=== PATIENT | male | born 1975 | race Two or more races ===

== ENCOUNTER 2022-04-18 10:44 | Emergency (ER) | payer OTHER, SELFPAY ==
--- NOTE | ~2022-04-18 | XR_ITS ---
EXAMINATION: XR NECK SOFT TISSUE XR CHEST XR ABDOMEN CLINICAL INFORMATION: Question foreign body COMPARISON: None TECHNIQUE: 2 views of the neck soft tissues. PA view of the chest. One view, 2 images of the abdomen. FINDINGS: NECK: The airways patent. No radiopaque foreign body identified. The soft tissues appear unremarkable. The epiglottis is normal. The prevertebral soft tissues are normal. Normal appearance of the cervical spine. CHEST: The lungs are well expanded. There is no focal consolidation, edema, or effusion. No pneumothorax. The cardiomediastinal silhouette is within normal limits. No acute osseous abnormality. No radiopaque foreign body. ABDOMEN: Normal bowel gas pattern. No radiopaque foreign body identified. Gas and stool throughout the colon. No suspicious calcifications. No acute osseous abnormality. XR/XR soft tissue neck IMPRESSION: 1. No radiopaque foreign body identified. 2. Clear lungs. 3. Nonobstructive bowel gas pattern. Stool throughout the colon.
--- NOTE | ~2022-04-18 | XR_ITS ---
EXAMINATION: XR NECK SOFT TISSUE XR CHEST XR ABDOMEN CLINICAL INFORMATION: Question foreign body COMPARISON: None TECHNIQUE: 2 views of the neck soft tissues. PA view of the chest. One view, 2 images of the abdomen. FINDINGS: NECK: The airways patent. No radiopaque foreign body identified. The soft tissues appear unremarkable. The epiglottis is normal. The prevertebral soft tissues are normal. Normal appearance of the cervical spine. CHEST: The lungs are well expanded. There is no focal consolidation, edema, or effusion. No pneumothorax. The cardiomediastinal silhouette is within normal limits. No acute osseous abnormality. No radiopaque foreign body. ABDOMEN: Normal bowel gas pattern. No radiopaque foreign body identified. Gas and stool throughout the colon. No suspicious calcifications. No acute osseous abnormality. XR/XR chest 1V IMPRESSION: 1. No radiopaque foreign body identified. 2. Clear lungs. 3. Nonobstructive bowel gas pattern. Stool throughout the colon.
--- NOTE | ~2022-04-18 | XR_ITS ---
EXAMINATION: XR NECK SOFT TISSUE XR CHEST XR ABDOMEN CLINICAL INFORMATION: Question foreign body COMPARISON: None TECHNIQUE: 2 views of the neck soft tissues. PA view of the chest. One view, 2 images of the abdomen. FINDINGS: NECK: The airways patent. No radiopaque foreign body identified. The soft tissues appear unremarkable. The epiglottis is normal. The prevertebral soft tissues are normal. Normal appearance of the cervical spine. CHEST: The lungs are well expanded. There is no focal consolidation, edema, or effusion. No pneumothorax. The cardiomediastinal silhouette is within normal limits. No acute osseous abnormality. No radiopaque foreign body. ABDOMEN: Normal bowel gas pattern. No radiopaque foreign body identified. Gas and stool throughout the colon. No suspicious calcifications. No acute osseous abnormality. XR/XR abdomen 1V IMPRESSION: 1. No radiopaque foreign body identified. 2. Clear lungs. 3. Nonobstructive bowel gas pattern. Stool throughout the colon.
[2022-04-18 10:50] VITALS: BP 126/73; PULSE 72; RESP 18; TEMP 36.7; O2SAT 99; BMI 24.4
[2022-04-18 11:19] VITALS: BP 132/87; PULSE 78; RESP 18; TEMP 36.6; O2SAT 98
--- NOTE | 2022-04-18 11:20 | PC.NURSE ---
46 y/o M pw ?foreign body. pt states that he accidentally swallowed the rubber stopper from his water bottle and wants to be sure it is not stuck. pt was able to eat and drink without difficulty this AM. no other complaints. denies SOB/or difficulty breathing. speaking in clear sentences. [id number], calm and cooperative, VSS
--- NOTE | 2022-04-18 12:01 | ED_ITS ---
HPI - General Adult General Chief complaint: Skin/Abscess/Foreign Body Stated complaint: Swallowed FO from water bottle Time Seen by Provider: 04/18/22 11:51 Source: patient Mode of arrival: ambulatory Limitations: no limitations History of Present Illness HPI narrative: Patient is a 46-year-old male presents emergency department for evaluation of ingesting a foreign body. He states last night he swallowed a rubber stopper from his water bottle. He was concerned that it may be stuck somewhere therefore he came in for evaluation. He is having no sore throat, dysphagia, chest pain, shortness of breath, difficulty breathing, nausea, vomiting, abdominal pain. He has been eating and drinking normally today without any complication. Related Data Home Medications Medication Instructions Recorded Confirmed albuterol sulfate 90 mcg/actuation 2 puff inhalation Q6H PRN 01/09/22 aerosol inhaler Previous Rx's Medication Instructions Recorded azithromycin 250 mg tablet See Rx Instructions PO .COMPLEX #6 01/09/22 tabs Allergies Allergy/AdvReac Type Severity Reaction Status Date / Time No Known Allergies Allergy Verified 01/09/22 09:22 Review of Systems Review of Systems: Gastrointestinal: Foreign body ingestion as noted in HPI Yes all other systems are reviewed and are negative PMFSH Past Medical History Attestation statement: The following information was validated with the patient. Source: old records reviewed Social History Social History Advance Directives: No Advance Directives Information Provided: Yes Physical Exam ED Vital Signs: Vital Signs - 24 hr 04/18/22 10:50 04/18/22 11:19 Temperature 98.0 F 98 F Pulse Rate 72 78 Respiratory Rate 18 18 Blood Pressure 126/73 132/87 Pulse Oximetry 99 98 Oxygen Delivery Method Room Air Room Air BMI result Body Mass Index 24.4 Appearance: Alert.?Oriented to person, place and time. No acute distress.?Normal affect. Eyes: Pupils equal, round and reactive to light.? ENT: Pharynx normal.?? Neck: Normal inspection.? Neck supple.?? CVS: Heart sounds normal. Normal heart rate and rhythm.? Pulses normal.?? Respiratory: No respiratory distress.? Lung sounds clear to auscultation bi laterally?? Abdomen: Soft and non-tender. Normoactive bowel sounds. Skin: Skin warm and dry.? Normal skin color.? Neuro: Moves all extremities spontaneously. Sensation intact bilaterally. No focal neuro deficits. Ambulates with normal steady gait. Medical Decision Making Medical Decision Making [facility] Narrative: Patient is a 46-year-old male presents to the emergency department for evaluation after foreign body ingestion. Personal concern for possible impaction summer. He is without any physical complaints at this time. His physical examination is benign. He is tolerating oral intake without any difficulty. He is in no respiratory distress. His vital signs are stable. XR imaging reveals no radiopaque foreign body identified within the abdomen, chest, soft tissues of the neck, no acute cardiopulmonary process, and there is a nonobstructive bowel gas pattern. At this time patient is stable for discharge home. We discussed worrisome signs and symptoms that would warrant re- evaluation in the emergency department. All questions were answered. Independent Interpretation I performed an independent interpretation of an: Plain X-Ray (I have personally interpreted x-ray imaging and agree with the radiologist impression) Radiology Impression Discussion of test interpretation with radiology: I have reviewed the radiologist's reading. Radiologist Impression: FINDINGS: NECK: The airways patent. No radiopaque foreign body identified. The soft tissues appear unremarkable. The epiglottis is normal. The prevertebral soft tissues are normal. Normal appearance of the cervical spine. CHEST: The lungs are well expanded. There is no focal consolidation, edema, or effusion. No pneumothorax. The cardiomediastinal silhouette is within normal limits. No acute osseous abnormality. No radiopaque foreign body. ABDOMEN: Normal bowel gas pattern. No radiopaque foreign body identified. Gas and stool throughout the colon. No suspicious calcifications. No acute osseous abnormality. XR/XR abdomen 1V IMPRESSION: 1.? No radiopaque foreign body identified. 2.? Clear lungs. 3.? Nonobstructive bowel gas pattern. Stool throughout the colon. Discharge Plan Discharge Clinical Impression: Suspected ingested foreign body not found after observation Patient Disposition: Home, Self-Care Additional Instructions: If you develop difficulty swallowing, chest pain, shortness of breath, nausea, vomiting, abdominal pain, inability to tolerate oral intake without vomiting you should return back to the emergency department for re-evaluation. Prescriptions: No Action albuterol sulfate 90 mcg/actuation HFA aerosol inhaler 2 puff inhalation Q6H PRN azithromycin 250 mg tablet See Rx Instructions PO .COMPLEX Qty: 6 0RF Rx Instructions: take 500 mg today (day 1), then 250 mg for 4 days (days 2-5) PO Referrals: Physician,Unknown J [Primary Care Provider] - Interventions: ED Discharge Assessment Last Done: 04/18/22 12:22 Discharge Date/Time: 04/18/22 12:22
== END 2022-04-18 12:22 | disposition home or self-care (01) ==
PROVIDERS: Emergency Provider Emergency Medicine
DX: R09.89 Other specified symptoms and signs involving the circulatory and respiratory systems (principal); R13.10 Dysphagia, unspecified; M54.2 Cervicalgia; R10.9 Unspecified abdominal pain
CPT/HCPCS: 70360; 71045; 74018; 99283; 99284